=== PATIENT | male | born 1980 | race African-American/Black ===

== ENCOUNTER 2023-08-10 13:49 | Emergency (ER) | payer SELFPAY | END 2023-08-10 18:00 | disposition left against medical advice (07) | LOC: ERS 13:49 | DX: Z53.21 Procedure and treatment not carried out due to patient leaving prior to being seen by health care provider (principal) ==

== ENCOUNTER 2023-08-11 19:20 | Inpatient (IN) | payer OTHER, SELFPAY ==
[~2023-08-11 19:20] MED LIST: Iopamidol-370 76% 500 ML MDV (1 ML CHARGE) ONE
[2023-08-11 20:09] LABS: #Eosinphils 0.2 thou/uL (0.0-0.7); #Monocytes 1.4 thou/uL (0.11-0.59); #Neutrophils 9.1 thou/uL (1.40-6.50); %Basophils 0.3 % (0.0-1.0); %Eosinophils 1.6 % (0.0-10.0); %Lymphocytes 20.4 % (21.0-51.0); %Monocytes 10.1 % (0.0-10.0); %Neutrophils 67.3 % (42.0-75.0); Hematocrit 43.2 % (42.0-52.0); Hemoglobin 14.3 g/dL (14.0-18.0); Mean Corpuscular HGB CONC 33.1 g/dL (32.0-36.0); Mean Corpuscular Hemoglobin 29.9 pg (27.0-31.0); Mean Corpuscular Volume 90.4 fl (78.0-98.0); Mean Platelet Volume 9.4 fL (7.4-10.4); Platelet Count 248 10x3/uL (130-400); RBC Distribution Width 12.8 % (11.5-14.5); Red Blood Cell (RBC) Count 4.78 mill/uL (4.70-6.10); White Blood Cell (WBC) Count 13.5 10x3/uL (4.8-10.8)
[2023-08-11 20:31] LABS: ALT (SGPT) 8 U/L (8-55); AST (SGOT) 15 U/L (5-34); Albumin 3.7 g/dL (3.5-5.0); Alkaline Phosphatase 96 U/L (40-110); Anion Gap 13 mmol/L (10-20); BUN (Urea Nitrogen) 14 mg/dL (8.9-20.6); Bilirubin, Total 0.5 mg/dL (0.2-1.2); Calc. Creatinine Clearance 0 mL/min (70-130); Calcium 8.4 mg/dL (7.8-10.44); Carbon Dioxide 22 mmol/L (22-29); Chloride 110 mmol/L (98-107); Estimated GFR 85; Globulin 3.4 g/dL (2.4-3.5); Glucose 114 mg/dL (70-105); Potassium 4.3 mmol/L (3.5-5.1); Protein, Total 7.1 g/dL (6.0-8.3); Sodium 141 mmol/L (136-145)
[2023-08-11 20:34] LABS: Troponin I Less than 0.010 ng/mL (< 0.028)
[2023-08-11] MEDS ORDERED: Ondansetron ODT 4 MG TAB PO PRN (21:34)
[2023-08-11] MEDS ORDERED: Calcium Carbonate 500 MG ChewTAB PO PRN (21:34)
[2023-08-11] MEDS ORDERED: Senokot S 8.6-50 MG TAB PO PRN (21:34)
[2023-08-11] MEDS ORDERED: Heparin 25,000 units/D5W 500 ML IVPB SCH (21:45)
[2023-08-11] MEDS ORDERED: Heparin 10,000 UNITS/ 10 ML VIAL SLOW IVP SCH (21:45)
[2023-08-11 22:36] LABS: Hematocrit 42.7 % (42.0-52.0); Hemoglobin 14.2 g/dL (14.0-18.0); Platelet Count 235 10x3/uL (130-400)
[2023-08-11 23:09] VITALS: BMI 29.0
[2023-08-11] MEDS ORDERED: Heparin 25,000 units/D5W 500 ML ONE (23:40)
[2023-08-12] MEDS ORDERED: Acetaminophen 325 MG TAB ONE (01:41)
[2023-08-12] MEDS: Acetaminophen 325 MG TAB PO PRN ×2 (01:43→13:53)
[2023-08-12] MEDS ORDERED: HYDROcodone/Acetaminophen 5/325 mg Tablet PO SCH (02:30)
[2023-08-12] MEDS ORDERED: HYDROcodone/Acetaminophen 5/325 mg Tablet ONE (02:39)
[2023-08-12 06:59] LABS: PTT 141.1 sec (22.9-36.1)
[2023-08-12 07:04] LABS: #Eosinphils 0.5 thou/uL (0.0-0.7); #Monocytes 1.4 thou/uL (0.11-0.59); #Neutrophils 6.5 thou/uL (1.40-6.50); %Basophils 0.3 % (0.0-1.0); %Eosinophils 3.5 % (0.0-10.0); %Lymphocytes 34.7 % (21.0-51.0); %Monocytes 10.8 % (0.0-10.0); %Neutrophils 50.2 % (42.0-75.0); Hematocrit 38.7 % (42.0-52.0); Hemoglobin 12.8 g/dL (14.0-18.0); Mean Corpuscular HGB CONC 33.1 g/dL (32.0-36.0); Mean Corpuscular Hemoglobin 30.5 pg (27.0-31.0); Mean Corpuscular Volume 92.4 fl (78.0-98.0); Mean Platelet Volume 9.8 fL (7.4-10.4); Platelet Count 238 10x3/uL (130-400); RBC Distribution Width 13.1 % (11.5-14.5); Red Blood Cell (RBC) Count 4.19 mill/uL (4.70-6.10); White Blood Cell (WBC) Count 12.9 10x3/uL (4.8-10.8)
[2023-08-12 07:19] LABS: Anion Gap 13 mmol/L (10-20); BUN (Urea Nitrogen) 14 mg/dL (8.9-20.6); Calc. Creatinine Clearance 140 mL/min (70-130); Calcium 8.2 mg/dL (7.8-10.44); Carbon Dioxide 24 mmol/L (22-29); Chloride 106 mmol/L (98-107); Estimated GFR 98; Glucose 101 mg/dL (70-105); Potassium 3.4 mmol/L (3.5-5.1); Sodium 140 mmol/L (136-145)
[2023-08-12] MEDS ORDERED: Communication Order-Pharmacy FS ONE (09:14)
[2023-08-12] MEDS ORDERED: Enoxaparin 100 MG (1 mL) SYRINGE SC SCH (10:30)
[2023-08-12] MEDS ORDERED: Enoxaparin 100 MG (1 mL) SYRINGE ONE (11:00)
[2023-08-12] MEDS: Enoxaparin 100 MG (1 mL) SYRINGE SC SCH ×2 (11:03→23:11)
[2023-08-12 11:05] LABS: Amphetamine Detected (NotDetected); Barbiturates Screen Not Detected (NotDetected); Benzodiazepine Screen Not Detected (NotDetected); Cocaine Metabolite Screen Detected (NotDetected); Methadone Not Detected (NotDetected); Methamphetamine Detected (NotDetected); Opiate Screen Detected (NotDetected); Oxycodone Screen Not Detected (NotDetected); Phencyclidine (PCP) Detected (NotDetected); THC/Cannabinoid Screen Not Detected (NotDetected); Tricyclic Screen Not Detected (NotDetected)
[2023-08-12] MEDS: Famotidine 20 MG TAB PO SCH ×2 (12:17→21:34)
[2023-08-12] MEDS: Acetaminophen 500 MG TAB PO PRN (21:31)
[2023-08-13 05:04] LABS: #Eosinphils 0.4 thou/uL (0.0-0.7); #Monocytes 0.9 thou/uL (0.11-0.59); #Neutrophils 4.9 thou/uL (1.40-6.50); %Basophils 0.4 % (0.0-1.0); %Eosinophils 3.9 % (0.0-10.0); %Monocytes 9.5 % (0.0-10.0); %Neutrophils 49.8 % (42.0-75.0); Hematocrit 39.6 % (42.0-52.0); Mean Corpuscular HGB CONC 32.8 g/dL (32.0-36.0); Mean Corpuscular Hemoglobin 30.2 pg (27.0-31.0); Mean Corpuscular Volume 91.9 fl (78.0-98.0); Mean Platelet Volume 9.5 fL (7.4-10.4); Platelet Count 261 10x3/uL (130-400); RBC Distribution Width 12.8 % (11.5-14.5); Red Blood Cell (RBC) Count 4.31 mill/uL (4.70-6.10); White Blood Cell (WBC) Count 9.9 10x3/uL (4.8-10.8)
[2023-08-13 05:19] LABS: Anion Gap 11 mmol/L (10-20); BUN (Urea Nitrogen) 13 mg/dL (8.9-20.6); Calc. Creatinine Clearance 146 mL/min (70-130); Calcium 8.7 mg/dL (7.8-10.44); Carbon Dioxide 27 mmol/L (22-29); Chloride 106 mmol/L (98-107); Estimated GFR 103; Glucose 91 mg/dL (70-105); Potassium 3.8 mmol/L (3.5-5.1); Sodium 140 mmol/L (136-145)
[2023-08-13] MEDS: Acetaminophen 500 MG TAB PO PRN ×3 (08:19→20:56)
[2023-08-13] MEDS: Famotidine 20 MG TAB PO SCH ×2 (08:20→20:56)
[2023-08-13] MEDS: Apixaban 5 MG TAB PO SCH ×2 (08:20→20:56)
[2023-08-14 05:24] LABS: #Eosinphils 0.3 thou/uL (0.0-0.7); #Monocytes 0.9 thou/uL (0.11-0.59); #Neutrophils 6.1 thou/uL (1.40-6.50); %Basophils 0.3 % (0.0-1.0); %Eosinophils 3.4 % (0.0-10.0); %Lymphocytes 25.7 % (21.0-51.0); %Monocytes 9.2 % (0.0-10.0); Hematocrit 41.1 % (42.0-52.0); Hemoglobin 13.6 g/dL (14.0-18.0); Mean Corpuscular HGB CONC 33.1 g/dL (32.0-36.0); Mean Corpuscular Volume 90.5 fl (78.0-98.0); Mean Platelet Volume 9.5 fL (7.4-10.4); Platelet Count 305 10x3/uL (130-400); RBC Distribution Width 12.6 % (11.5-14.5); Red Blood Cell (RBC) Count 4.54 mill/uL (4.70-6.10)
[2023-08-14 05:46] LABS: Anion Gap 11 mmol/L (10-20); BUN (Urea Nitrogen) 13 mg/dL (8.9-20.6); Calc. Creatinine Clearance 154 mL/min (70-130); Calcium 8.9 mg/dL (7.8-10.44); Carbon Dioxide 25 mmol/L (22-29); Chloride 107 mmol/L (98-107); Estimated GFR 108; Glucose 97 mg/dL (70-105); Potassium 3.7 mmol/L (3.5-5.1); Sodium 139 mmol/L (136-145)
[2023-08-14] MEDS: Famotidine 20 MG TAB PO SCH (08:58)
[2023-08-14] MEDS: Apixaban 5 MG TAB PO SCH (08:58)
[2023-08-14] MEDS: Acetaminophen 500 MG TAB PO PRN ×2 (08:59→14:31)
[2023-08-14 12:02] VITALS: BP 135/82; TEMP 98.6
[2023-08-20] MEDS ORDERED: Apixaban 5 MG TAB PO SCH (09:00)
== END 2023-08-14 17:20 | disposition home or self-care (01) | DRG 299 ==
LOC: ERS 19:20 → 2NO 20:43 → ERHOLD 20:48 → 2NO 08-12 11:56
PROVIDERS: ADMIT Student in an Organized Health Care Education/Training Program; ATTEND Internal Medicine
DX: I82.432 Acute embolism and thrombosis of left popliteal vein (principal); I26.99 Other pulmonary embolism without acute cor pulmonale; I82.442 Acute embolism and thrombosis of left tibial vein; I82.452 Acute embolism and thrombosis of left peroneal vein; F14.10 Cocaine abuse, uncomplicated; F19.10 Other psychoactive substance abuse, uncomplicated; F17.200 Nicotine dependence, unspecified, uncomplicated; Z71.51 Drug abuse counseling and surveillance of drug abuser
CPT/HCPCS: 36415; 71275; 80048; 80053; 80306; 83605; 84484; 85025; 85730; J1644; J1650; Q9967